=== PATIENT | female | born 1970 | race Caucasian/White ===

== ENCOUNTER → 2017-04-17 | Outpatient (CLI) | payer BC ==
[~2017-04-17] MED LIST: ASC500 PO; BACDS PO; BENZ-23 PO; CALC100C PO; CIPR500S2 PO; ESTR0.62 PO; FIBE1TAB3 PO; GUAI1200 PO; HYDR2TAB4 PO; HYDR473S4 PO; IBUP400T13 PO; IBUP800T37 PO; KET10 PO; LEV500 PO; LEV88 PO; MULT-1367 PO; [UNRECOGNIZED DRUG - CODE] PO
--- NOTE | 2017-04-18 09:06 | RADIOLOGY IMAGING REPORT ---
FACILITY: PATIENT NAME: ESTEFANI ROPER : [id number] MR: [id number] V: [id number] EXAM DATE: [id number] ORDERING PHYSICIAN: ZACK BLUE TECHNOLOGIST: Maya Fortune PROCEDURE:BILATERAL DIGITAL SCREENING MAMMOGRAM WITH CAD ASSISTED INTERPRETATION & 3D TOMOSYNTHESIS COMPARISON:Prior mammograms 02/23/16, 04/05/13, 02/22/11. There are bilateral sub-pectoral implants in place. INDICATIONS:SCREENING FINDINGS: Moderately dense fibroglandular tissue is seen anterior to the implants. The parenchymal pattern has remained stable allowing for difference in mammographic technique & patient positioning. There is no evidence of malignant appearing mass, malignant appearing calcifications or other secondary sign of malignancy in either breast. There is no evidence of implant rupture. DIAGNOSTIC CATEGORY 2--BENIGN FINDING. RECOMMENDATIONS: ROUTINE MAMMOGRAM AND CLINICAL EVALUATION. IMPRESSION: BIRADS 2: Benign finding No significant abnormality is seen Dictated by: Brenda King M.D. on 04/17/2017 at 16:09 Transcribed by: CEE on 04/17/2017 at 16:19 Approved by: Brenda King M.D. on 04/18/2017 at 9:05 [facility]
== END ==
LOC: MAMO 00:50
PROVIDERS: ATTEND Nurse Practitioner Family
DX: Z12.31 Encounter for screening mammogram for malignant neoplasm of breast (principal); Z98.82 Breast implant status
CPT/HCPCS: 77063; 77067

== ENCOUNTER → 2017-07-10 | Outpatient (CLI) | payer BC ==
--- NOTE | 2017-07-10 10:23 | RADIOLOGY IMAGING REPORT ---
FACILITY: [facility] - [place] PATIENT NAME: Belkis Jefferson : 1970 MR: [id number] V: [id number] EXAM DATE: ORDERING PHYSICIAN: ZACK BLUE TECHNOLOGIST: Location: [facility] - [place] Patient: Belkis Jefferson : 1970 Visit/Account:[id number] Date of Sevice: 07/10/2017 DEXA Scan Clinical history: Osteopenia. Comparison: None available. LUMBAR SPINE: The bone mineral density (BMD) measured from L1-L4 correlates with a Z-score 0.2 and a T-score of 0.1 which is Normal as defined by the World Health Organization. The corresponding risk of fracture in the lumbar spine is Not increased compared with a young adult reference population. HIP: Bone mineral density (BMD) measured in the left femoral neck region correlates with a Z-score 0.5 and a T-score of -0.1 which is Normal as defined by the World Health Organization. The corresponding ri sk of fracture in the hip is Not increased compared with a young adult reference population. Bone mineral density (BMD) measured in the Femoral Neck region measures 1.022 g/cm2. Impression: 1. Lumbar spine: Normal. 2. Left femoral neck region: Normal. 3. Femoral Neck: Bone Mineral Density is 1.022 g/cm2 The next DEXA scan of this patient should include the following sites: L1-L4 and the left hip. FRAX? WHO Fracture Risk Assessment Tool link: <http://www.shef.ac.uk/FRAX/tool.jsp?locationValue=9> PLEASE NOTE: 1) The World Health Organization defines low BMD as follows: T-score Normal > -1 Osteopenia < -1 and > -2.5 Osteoporosis < -2.5 without fractures Established osteoporosis < -2.5 with fractures 2) In general, you may wish to consider: Diagnosis Treatment Follow-up DEXA Normal BMD Prevention 2-3 years Osteopenia Prevention/therapy 1-2 years Osteoporosis Therapy Yearly 3) Fracture risk estimated from the T-score is more accurate for vertebral fractures (often spontane ous) than for hip fractures. Report Dictated By: Malvin Ramos at 07/10/2017 10:19 AM Report E-Signed By: Malvin Ramos at 07/10/2017 10:20 AM WSN:[id number]
== END ==
LOC: RAD 01:00
PROVIDERS: ATTEND Nurse Practitioner Family
DX: Z13.820 Encounter for screening for osteoporosis (principal)
CPT/HCPCS: 77080

== ENCOUNTER → 2018-03-10 | Outpatient (CLI) | payer BC ==
--- NOTE | 2018-03-10 17:43 | RADIOLOGY IMAGING REPORT ---
FACILITY: [facility] PATIENT NAME: Belkis Jefferson : 1970 MR: [id number] V: [id number] EXAM DATE: ORDERING PHYSICIAN: LEIGH BEST TECHNOLOGIST: Location: [facility] - [place] Patient: Belkis Jefferson : 1970 Visit/Account:[id number] Date of Sevice: 03/10/2018 MR CHEST W/O CON INDICATION: SC joint pain. Irritation. COMPARISON: None available TECHNIQUE: Multiplanar multisequence MR images were obtained through the right sternoclavicular joint and the upper chest. FINDINGS: Deep to the markers of the anterior right upper chest, there is minimal edema like signal within the medial aspect of the right clavicle suggesting mild stress change. This is noted on image 17 of the s agittal series and on image 14 of the axial series. There also prominent marginal osteophytes noted o ff the inferior margin of the right medial clavicle on image 7 of the coronal series. This constellat ion of findings may relate to underlying osteoarthritic changes possibly related to sequela of old in jury. Small amount of fluid noted within the right sternoclavicular joint which is likely reactive in natur e. The visualized bilateral neck vasculature at the level of the lower neck appears unremarkable. The visualized lower cervical spine and upper thoracic spine overall unremarkable with no severe cent ral or foraminal narrowing and the levels visualized. IMPRESSION: 1. Findings suggest possibly reactive edema of the medial aspect of the right clavicle possibly degen erative in nature or related to stress change as above 2. No acute or aggressive osseous abnormality. Report Dictated By: Jayant Gardner MD at 03/10/2018 12:47 PM Report E-Signed By: Jayant Gardner MD at 03/10/2018 5:40 PM WSN:[email or web address]
== END ==
LOC: MRI 01:06
PROVIDERS: ATTEND Orthopaedic Surgery
DX: M25.511 Pain in right shoulder (principal)
CPT/HCPCS: 71550

== ENCOUNTER → 2018-03-16 | Outpatient (CLI) | payer BC ==
--- NOTE | 2018-03-17 11:16 | RADIOLOGY IMAGING REPORT ---
FACILITY: [facility] PATIENT NAME: ESTEFANI ROPER : [id number] MR: [id number] V: [id number] EXAM DATE: [id number] ORDERING PHYSICIAN: ZACK BLUE TECHNOLOGIST: James Villafana RDMS, FAITH PROCEDURE:US RIGHT BREAST COMPARISON:None. INDICATIONS:RIGHT BREAST PAIN, PRIOR HISTORY OF RIGHT LUMPECTOMY. FINDINGS: In the approximate 2 o'clock position of the Right breast 9cm from the nipple in area of patient's pain there is a 4.1 x 6.5 x 3.3mm lymph node with a fatty hilum. No other breast abnormality is seen. The patient does have subpectoral breast implant. The contour appears wavy although no evidence of implant rupture on Today's mammogram. DIAGNOSTIC CATEGORY 2--BENIGN FINDING. RECOMMENDATIONS: ROUTINE MAMMOGRAM AND CLINICAL EVALUATION. CLINICAL EVALUATION. IMPRESSION: BIRADS 2: Benign finding. There is a small fatty replaced lymph node in the 2 o'clock position of the Right breast. Clinical follow-up recommended for patient's Right breast pain. Dictated by: Brenda King M.D. on 03/16/2018 at 13:22 Transcribed by: CEE on 03/16/2018 at 14:00 Approved by: Brenda King M.D. on 03/17/2018 at 11:15 [facility]
--- NOTE | 2018-03-17 11:16 | RADIOLOGY IMAGING REPORT ---
FACILITY: [facility] - [place] PATIENT NAME: ESTEFANI ROPER : [id number] MR: [id number] V: [id number] EXAM DATE: [id number] ORDERING PHYSICIAN: ZACK BLUE TECHNOLOGIST: Maya Fortune PROCEDURE:BILATERAL DIAGNOSTIC DIGITAL MAMMOGRAM WITH CAD ASSISTED INTERPRETATION & 3D TOMOSYNTHESIS COMPARISON:Prior mammograms 04/17/17, 02/23/16, 02/02/14. INDICATIONS:RIGHT BREAST PAIN FINDINGS: There are bilateral subpectoral breast implants in place. There is no evidence of implant rupture of leakage. The breasts are heterogeneously dense which can obscure small masses. The parenchymal pattern has remained stable allowing for difference in mammographic technique & patient positioning. Today's Right breast Ultrasound demonstrated a small fatty replaced lymph node in the 2 o'clock position. DIAGNOSTIC CATEGORY 2--BENIGN FINDING. RECOMMENDATIONS: ROUTINE MAMMOGRAM AND CLINICAL EVALUATION. CLINICAL EVALUATION. IMPRESSION: BIRADS 2: Benign finding. No significant abnormality is seen. Clinical follow-up recommended for patient's Right breast pain. Dictated by: Brenda King M.D. on 03/16/2018 at 13:24 Transcribed by: CEE on 03/16/2018 at 13:53 Approved by: Brenda King M.D. on 03/17/2018 at 11:14 [facility]
== END ==
LOC: MAMO 11:14
PROVIDERS: ATTEND Nurse Practitioner Family
DX: Z98.82 Breast implant status (principal)
CPT/HCPCS: 77062; 77066